=== PATIENT | male | born 1975 | race Caucasian/White ===

== ENCOUNTER 2017-04-20 17:20 | Emergency (ER) | payer OTHER ==
[2017-04-20 17:36] VITALS: RESP 16; O2SAT 96
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
[2017-04-20 19:05] VITALS: BP 118/86; PULSE 94; TEMP 97.5
== END 2017-04-20 19:05 | disposition home or self-care (01) ==
DX: S82.51XA Displaced fracture of medial malleolus of right tibia, initial encounter for closed fracture (principal); S82.831A Other fracture of upper and lower end of right fibula, initial encounter for closed fracture; X58.XXXA Exposure to other specified factors, initial encounter; Y99.8 Other external cause status; Y93.39 Activity, other involving climbing, rappelling and jumping off